=== PATIENT | male | born 1975 | race Hispanic/Latino ===

== ENCOUNTER 2016-03-23 22:59 | Emergency (ER) | payer OTHER ==
[~2016-03-23] VITALS: Ht 162.6 cm; Wt 85.7 kg
[2016-03-23] MEDS ORDERED: KETOROLAC 60 MG/2 ML VIAL IM STA (23:52)
[2016-03-23] MEDS ORDERED: FLUT9.9S NS (23:55)
[2016-03-23] MEDS ORDERED: BENZ-13 PO (23:55)
[2016-03-23] MEDS ORDERED: AMOX-358 PO (23:55)
[2016-03-23] MEDS ORDERED: METH4TAB PO (23:55)
[2016-03-23] MEDS ORDERED: LORA1TAB59 PO (23:55)
--- NOTE | 2016-03-23 23:55 | ED Cough/URI ---
General Chief Complaint: Cough/Cold/Flu Symptoms Stated Complaint: L EAR PAIN/PRESSURE/COUGH/CONGESTION Nursing Triage Note: cough/congestion/left ear pain x2 days Source: patient History of Present Illness Time seen by provider: 23:15 Initial Comments C/O NON-PRODUCTIVE COUGH AND NASAL CONGESTION / SINUS PRESSURE X 2 WEEKS HAD FEVER FOR 2 DAYS, BUT NONE TODAY OR YESTERDAY C/O LEFT EAR PAIN, DECREASED HEARING, FEELS CONGESTED MULTIPLE SICK CONTACTS AT WORK ALL WITH SAME--WORKS IN A [employer]AURANT MILD IMPROVEMENT WITH OTC THERAFLU AND MUCINEX PT MOVED HERE FROM [facility] 5 MONTHS AGO, CHILD DELIVERED HERE IN DECEMBER-- 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 Allergies and Home Medications Allergies Coded Allergies: No Known Drug Allergies (Unverified , 03/23/16) Home Medications Amoxicillin/Potassium Clav 1 Each Tablet #20 1 EACH PO BID Prescribed by: HEAVEN WISE on 03/23/162354 Benzonatate 100 Mg Capsule #30 1-2 TAB PO TID Prescribed by: HEAVEN WISE on 03/23/162354 Fluticasone Propionate 9.9 Ml [place].susp #1 2 SPRAYS NS BID Prescribed by: HEAVEN WISE on 03/23/162354 Loratadine/Pseudoephedrine 1 Each Tab.er.12h #20 1 EACH PO BID Prescribed by: HEAVEN WISE on 03/23/162354 Methylprednisolone 4 Mg Tab.ds.pk #1 4 MG PO UD Prescribed by: HEAVEN WISE on 03/23/162354 Constitutional: see HPI fever EENTM: ear pain nose congestion see HPINo throat pain Respiratory: see HPI coughNo dyspnea on exertion, No phlegm, No short of breath, No wheezing Cardiovascular: no symptoms reported Gastrointestinal: no symptoms reported Genitourinary: no symptoms reported Musculoskeletal: no symptoms reported Skin: no symptoms reported Psychiatric/Neurological: No Symptoms Reported Hematologic/Lymphatic: No Symptoms Reported Immunological/Allergic: no symptoms reported Past Tklbolp-Rfkahd-Scmoxj Hx Patient Social History Alcohol Use: Denies Use Recreational Drug Use: No Smoking Status: Never a Smoker 2nd Hand Smoke Exposure: No Recent Foreign Travel: No Contact w/Someone Who Travel: No Recent Infectious Disease Expo: No Recent Hopitalizations: No Immunizations Up To Date Tetanus Booster (TDap): Unknown Seasonal Allergies Seasonal Allergies: No Surgeries HX Surgeries: Yes (HERNIA REPAIR, RIGHT HAND SURGERY) Surgeries: Abdominal, Orthopedic Respiratory Hx Respiratory Disorders: No Cardiovascular Hx Cardiac Disorders: No Neurological Hx Neurological Disorders: No Reproductive System Hx Reproductive Disorders: No Genitourinary Hx Genitourinary Disorders: No Gastrointestinal Hx Gastrointestinal Disorders: Yes Gastrointestinal Disorders: Abdominal Hernia (S/P HERNIA REPAIR) Musculoskeletal Hx Musculoskeletal Disorders: Yes (S/P RIGHT HAND SURGERY) Endocrine Hx Endocrine Disorders: No HEENT HX ENT Disorders: No Cancer Hx Cancer: No Psychosocial Hx Psychiatric Problems: No Integumentary HX Skin/Integumentary Disorder: No Blood Transfusions Hx Blood Disorders: No Physical Exam Vital Signs Vital Sign - Last 12Hours Capillary Refill : Less Than 3 Seconds General Appearance: WD/WN no apparent distress HEENT: PERRL/EOMINo photophobia, No pharyngeal erythema, No other (BILATERAL TM'S VERY INFLAMED, DULL WITH LARGE EFFUSIONS--LEFT > RIGHT. MARKED NASAL MUCOSAL EDEMA AND CLEAR RHINORRHEA. MILD FRONTAL SINUS TENDERNESS. 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 no motor/sensory deficits alert normal mood/affect oriented x 3 Skin: normal color warm/dry Progress/Results/Core Measures Results/Orders Micro Results Microbiology 03/23/16 Influenza Types A,B Antigen (JAKE) - Final, Complete My Orders Orders-HEAVEN WISE DO Influenza A And B Antigens (03/23/16 23:14) Ketorolac Injection (Toradol Injection) (03/23/16 23:52) Ceftriaxone Injection (Rocephin Injectio (03/24/16 00:00) Lidocaine 1% Injection (Xylocaine 1% Inj (03/24/16 00:00) Medications Given in ED Current Medications Medications Dose Ordered Sig/Raven Route Start Time Stop Time Status Last Admin Dose Admin Ceftriaxone Sodium 1,000 mg ONCE ONCE IM 03/24/16 00:00 03/24/16 00:01 DC 03/24/16 00:02 1,000 MG Lidocaine HCl 2.1 ml ONCE ONCE INJ 03/24/16 00:00 03/24/16 00:01 DC 03/24/16 00:02 2.1 ML Vital Signs/I&O Vital Sign - Last 12Hours 03/23/16 03/23/16 03/24/16 23:18 23:18 00:15 Temp 98.1 98.0 Pulse 101 93 Resp 18 16 B/P 116/83 Pulse Ox 99 98 O2 Delivery Room Air Room Air Blood Pressure Mean: 94 Departure Impression Impression: Primary Impression: Bronchitis Additional Impressions: Sinusitis Bilateral otitis media with effusion Disposition: HOME, SELF-CARE Condition: Stable Departure-Patient Inst. Referrals: NO,LOCAL PHYSICIAN (PCP/Family) Primary Care Physician Patient Instructions: Acute Bronchitis, Adult (DC), Ear Infections (Otitis Media) (DC), Serous Otitis Media (DC), Sinusitis, Adult (DC) Add. Discharge Instructions: TYLENOL 1 GRAM AND MOTRIN 800 MG 4 TIMES A DAY NEEDED FOR PAIN OR FEVER LOTS OF CLEAR LIQUIDS FOLLOW UP WITH DR OF CHOICE IN 3-4 DAYS IF NO BETTER All discharge instructions reviewed with patient and/or family. Voiced understanding. Scripts Benzonatate (Tessalon Perle)100 Mg Capsule1-2 Tab PO TID Cough #30 CAP Prov:HAEVEN WISE DO 03/23/16 Methylprednisolone (Medrol)4 Mg Tab.ds.pk4 Mg PO UD #1 PKG Prov:HEAVEN WISE DO 03/23/16 Fluticasone Propionate (Flonase Allergy Relief)9.9 Ml [place].susp2 Sprays NS BID #1 SPRAY Prov:HEAVEN WISE DO 03/23/16 Loratadine/Pseudoephedrine (Claritin-D 12 Hour Tablet)1 Each Tab.er.12h1 Each PO BID #20 TAB Prov:HEAVEN WISE DO 03/23/16 Amoxicillin/Potassium Clav (Augmentin 875-125 Tablet)1 Each Tablet1 Each PO BID INFECTION #20 TAB Prov:HEAVEN WISE DO 03/23/16 HEAVEN WISE DO Mar 23, 2016 23:55
[2016-03-24] MEDS ORDERED: cefTRIAXone 1 GM (ROCEPHIN) VIAL IM ONE
[2016-03-24] MEDS ORDERED: LIDOCAINE 1% INJ 20 ML (XYLOCAINE) VIAL INJ ONE
[2016-03-24 00:15] VITALS: BP 119/84
== END 2016-03-24 00:16 | disposition home or self-care (01) ==
LOC: ER 23:03
DX: J40 Bronchitis, not specified as acute or chronic (principal); H65.93 Unspecified nonsuppurative otitis media, bilateral; J01.90 Acute sinusitis, unspecified
CPT/HCPCS: 87804; 96372; 99282